=== PATIENT | male | born 1960 | race Hispanic/Latino ===

== ENCOUNTER → 2024-09-09 | Outpatient (CLI) | payer OTHER | END | disposition home or self-care (01) | LOC: RAH 14:09 | PROVIDERS: ATTEND Internal Medicine Cardiovascular Disease | DX: I42.9 Cardiomyopathy, unspecified (principal) | CPT/HCPCS: 93306 ==

== ENCOUNTER 2024-09-28 07:50 | Observation (INO) | payer OTHER ==
[2024-09-23 09:40] LABS: BASOPHILS # (AUTO) 0.03 K/uL (0.00-0.20); BASOPHILS % (AUTO) 0.4 % (0.0-5.0); EOSINOPHILS # (AUTO) 0.09 K/uL (0.00-0.70); EOSINOPHILS % (AUTO) 1.1 % (0.0-8.0); HEMATOCRIT 39.8 % (42-54); IMMATURE GRANULOCYTE ABSOLUTE 0.02 K/uL (0-1); LYMPHOCYTES # (AUTO) 1.8 K/uL (1.0-4.8); LYMPHOCYTES % (AUTO) 21.9 % (21.0-51.0); MEAN CORPUSCULAR HEMOGLOBIN 30.2 pg (27.0-33.0); MEAN CORPUSCULAR HGB CONC 32.7 g/dL (32.0-36.0); MEAN CORPUSCULAR VOLUME 92.6 fL (79-99); MONOCYTES % (AUTO) 12.2 % (3.0-13.0); NEUTROPHILS # (AUTO) 5.3 K/uL (1.8-7.7); NEUTROPHILS % (AUTO) 64.2 % (40.0-77.0); PLATELET COUNT (AUTO) 285 K/uL (130-400); WHITE BLOOD COUNT (AUTO) 8.3 K/uL (4.8-10.8)
[2024-09-23 09:45] LABS: CREATININE 0.7 mg/dL (0.5-1.3); POTASSIUM 4.6 mmol/L (3.5-5.1)
[2024-09-23 09:54] VITALS: BP 154/72; PULSE 64; RESP 18; TEMP 98.1
[2024-09-23 10:02] LABS: APPEARANCE,URINE CLEAR (CLEAR); BILIRUBIN,URINE NEGATIVE (NEGATIVE); COLOR,URINE LIGHT-YELLOW (YELLOW); GLUCOSE, URINE (UA) NEGATIVE (NEGATIVE); KETONES,URINE NEGATIVE (NEGATIVE); LEUKOCYTE ESTERASE ,URINE NEGATIVE Leu/uL (NEGATIVE); NITRATE,URINE NEGATIVE (NEGATIVE); OCCULT BLOOD,URINE NEGATIVE (NEGATIVE); PH,URINE 5.5 (5.0-8.0); PROTEIN,URINE NEGATIVE (NEGATIVE); UROBILINOGEN,URINE 0.2 mg/dL (0.2-1.0)
[2024-09-23 10:09] LABS: INR 1.02 (0.85-1.15)
[2024-09-23 10:13] LABS: ADD UA MICROSCOPIC NO
[~2024-09-28] VITALS: Ht 167.6 cm; Wt 89.5 kg
[2024-09-28] VITALS (26 sets, daily range): BP systolic 96–156; BP diastolic 44–97; PULSE 61–93; RESP 15–20; TEMP 97.1–98.7; O2SAT 96–98
[~2024-09-28 07:50] MED LIST: CARV25TA PO; LOSA100T59 PO; METF-446 PO; ROSU5TAB51 PO
[2024-09-28] MEDS: ceFAZolin SODIUM 2 GM VIAL ONE (08:26)
[2024-09-28] MEDS: 0.9%NACL 1000ML 1,000 ML IV ONE (08:26)
[2024-09-28] MEDS ORDERED: MIDAZOLAM HCL 1 MG/ML 2ML VIAL ONE (10:38)
[2024-09-28] MEDS ORDERED: ondanSETRON 4MG INJ ONE (10:40)
[2024-09-28] MEDS ORDERED: LIDOCAINE PF 100MG/5ML (2%) SYRINGE 5ML ONE (10:40)
[2024-09-28] MEDS ORDERED: proPOFol 10 MG/ML 20ML VIAL IV ONE ×2 (10:40→12:55)
[2024-09-28] MEDS ORDERED: rocuRONium bROMide 10MG/1ML 5ML VL ONE ×2 (10:40→11:24)
[2024-09-28] MEDS ORDERED: dexaMETHasone SOD PHOSPHATE 10MG/ML 1ML VIAL ONE (10:40)
[2024-09-28] MEDS ORDERED: FENTanyl CITRate PF 50 MCG/1 ML 2ML VIAL ONE (10:41)
[2024-09-28] MEDS ORDERED: ROPivacaine 0.5% 5MG/ML 30ML ONE (10:52)
[2024-09-28] MEDS ORDERED: ePHEDrine SULFate 50 MG/ML AMPULE ONE (10:58)
[2024-09-28] MEDS ORDERED: TRANEXAMIC ACID 1000MG/10ML ONE (11:27)
[2024-09-28] MEDS: INSULIN humuLIN R 100 UNIT/ML 3ML SQ SCH (11:30)
[2024-09-28] MEDS ORDERED: PoTASSium chloRIDE 20MEQ/100ML 100 ML IV PRN (11:30)
[2024-09-28] MEDS ORDERED: PoTASSium chl 10% ELIXIR 20MEQ 20 MEQ/15 ML UDCUP PO PRN (11:30)
[2024-09-28] MEDS ORDERED: ondanSETRON 4MG INJ IVP PRN (11:30)
[2024-09-28] MEDS ORDERED: CALCIUM CARB 500MG PO PRN (11:30)
[2024-09-28] MEDS ORDERED: FERROUS FUMARATE 324 MG TABLET PO PRN (11:30)
[2024-09-28] MEDS ORDERED: DiphenhydrAMINE HCL 50 MG/ML VIAL IVP PRN (11:30)
[2024-09-28] MEDS ORDERED: CYCLOBENZAPRINE HCL 10 MG TABLET PO PRN (11:30)
[2024-09-28] MEDS ORDERED: PoTASSium chloRIDE 20MEQ ER 20 MEQ ERTAB PO PRN (11:30)
[2024-09-28] MEDS ORDERED: NEOSTIGMINE METHYLSULFATE 1MG/ML IV ONE (12:42)
[2024-09-28] MEDS ORDERED: GLYCOPYRROLATE 0.2 MG/ML 5 ML VIAL ONE (12:42)
[2024-09-28] MEDS: SUGAMMADEX SODIUM 200 MG/2 ML VIAL IV ONE (12:44)
--- NOTE | 2024-09-28 13:02 | OP ---
Operative Note: DATE OF PROCEDURE: 09/28/24 SURGEON: ARUNA IBRAHIM MD BRUSHER TENDER: Kristyn Donnelly ANESTHESIA: General and fascia iliaca block ANESTHESIOLOGIST/SELVAGE MACHINE OPERATOR: Efren Melton CRNA PREOPERATIVE DIAGNOSIS: Right hip osteoarthritis POSTOPERATIVE DIAGNOSIS: Right hip osteoarthritis PROCEDURE: Right total hip arthroplasty ESTIMATED BLOOD LOSS: 200 cc INDICATIONS: 64-year-old male with right hip osteoarthritis failing conservative management. After discussion of the risks, benefits, and alternatives, the patient voluntarily agreed to undergo the aforementioned procedure. DESCRIPTION OF PROCEDURE: Patient was properly identified in the preoperative holding area. Surgical site marking was verified and surgery consent reviewed. The patient was then taken to the operating room and placed in supine position on the OR table. After induction of general anesthesia, preoperative antibiotics were given. The patient was then transitioned in the lateral decubitus position with the right side up. All bony prominences were well-padded. Right lower extremity was then prepped and draped in the usual sterile fashion. Surgical time out was done verifying correct surgery, side, site, and location to be performed. We then began the procedure by making approximately 15 cm long incision centered over the greater trochanter. Here we came sharply through skin down to the fascia. Hemostasis was then achieved using Bovie electrocautery. We then incised fascia in line with the skin incision and finger split the tensor muscle proximally. We then placed our Charnley retractor. At this point we identified the vastus ridge and began elevating the full-thickness soft tissue flap off of the vastus ridge, splitting the vastus lateralis and gluteus muscles as necessary. We then proceeded to externally rotate the femur while making this flap. We resected part of the anterior capsule. The femoral head and neck was then delivered into view. We then dislocated the hip and performed a femoral neck osteotomy approximately half fingerbreadth proximal lesser trochanter. We then placed our retractors around the superior and anterior portion of the acetabulum and began to remove the labrum circumferentially. We then began reaming the acetabulum where we reamed up to a size 55 ensuring appropriate anteversion and abduction. We then proceeded to trial with the size 56 liliam tabular component and this appeared to sit well. We opened our size 56 acetabular component and after irrigating out the wound malleted this into place. It appeared to have good press-fit however we elected to place 6.5 screws x2. We drilled and filled the screws in standard fashion in the posterior superior portion of the cup. We then placed the manhole cover on the center of the cup. The wound was thoroughly irrigated out further and we placed the acetabular liner and impacted this in place in standard fashion. We then proceeded to reposition our retractors to elevate the proximal femur out of the wound. We then used the box chisel and canal finder to began preparing the femoral side and sequentially broached up to the aforementioned size stem. Once we felt we had good fit, fill, and control of the femur with the stem in place we then used our trial head component and reduce the hip. However we noted this to be a mildly lax on soft tissue tensioning with the appropriate limb length. We therefore elected to dislocate the hip and trialed once more using a high offset neck. Upon reduction, we had appropriate soft tissue te nsioning, limb length and stable range of motion. We therefore dislocated the hip once more removed our trial components thoroughly irrigated the out the wound and placed our final components in standard fashion. The hip was then reduced with the final components in place. It was found to be stable through range of motion with appropriate soft tissue tensioning and appropriate limb length. At this point we placed a bump under the knee and the foot on the male with a stack of towels to allow for internal rotation. We repaired the abductors back to the greater trochanter using #5 Ethibond. We then repaired the rent in the vastus lateralis and gluteus muscles using #1 Vicryl in a running fashion. We removed our Charnley retractor and began to repair the IT band using #1 Vicryl in interrupted [id number] fashion. At this point we began to close her subcutaneous tissue using 2-0 Vicryl. Running 3-0 Monocryl in subcuticular fashion with Dermabond placed over this for the skin. Island barrier dressing was then applied. Patient was returned to supine position with abduction pillow placed, awakened from anesthesia, and taken to the recovery room in stable condition. ARUNA IBRAHIM MD Sep 28, 2024 13:02
--- NOTE | 2024-09-28 13:43 | HMCIMG ---
HIP UNILAT 4VW RIGHT REASON: RT total hip arthroplasty. COMPARISON: None TECHNIQUE: Fluoroscopic images of right hip were obtained. FINDINGS: Please see procedure report by referring physician. IMPRESSION: Intraoperative films.
[2024-09-28] MEDS: MEPERIDINE-PF 25 MG/ML SYG ONE ×2 (13:44→13:54)
[2024-09-28] MEDS: GABApentin 100 MG CAPSULE PO SCH (14:00)
--- NOTE | 2024-09-28 14:22 | HMCIMG ---
HIP BILAT 2VW HISTORY: Status post surgery COMPARISON: None TECHNIQUE: 5 images of bilateral hips were obtained. FINDINGS: Total right hip arthroplasty changes are seen. Alignment appears be grossly adequate. There is no acute displaced fracture or dislocation. Degenerative changes are seen. IMPRESSION: 1. Findings as described above.
--- NOTE | 2024-09-28 14:40 | NUR ---
NOTE PATIENT ARRIVED FROM RECOVERY. POST OP VITALS IN PROGRESS SEE EMAR. DRESSING TO RIGHT HIP CDI, PATIENT RESTING COMFORTABLY IN BED. DENIES PAIN, FAMILY AT BEDSIDE. CB IN REACH.
[2024-09-28] MEDS: ceFAZolin SODIUM 2 GM VIAL IVP SCH (15:43)
[2024-09-28] MEDS: 0.9%NACL 1000ML 1,000 ML IV SCH (15:44)
[2024-09-28] MEDS: ketOROlac 15MG/ML VIAL (15MG/ML) IV SCH (15:45)
--- NOTE | 2024-09-28 16:55 | NUR ---
PT education completed for pain mgt, position, fall precautions, DC planning and plan of care. Pt given ice pack and fall alarm and call button in place. Pt does not have SCDs nursing aware.
--- NOTE | 2024-09-28 17:03 | NUR ---
ORTHO COORDINATOR: TEACHING REGARDING DVT AND PNEUMONIA PREVENTION, PAIN EXPECTATIONS AND PAIN MANAGEMENT REVIEWED. PATIENT IN BED. B SCD SLEEVES APPLIED AND FUNCTIONING. INCENTIVE SPIROMETER AT BEDSIDE. PATIENT RETURN DEMONSTRATED PROPER USE OF INCENTIVE SPIROMETER AND FOOT FLEXION AND EXTENSION EXERCISES. PAIN SCALE REVIEWED. ENCOURAGED PATIENT TO REQUEST MEDICATION ACCORDING TO LEVEL OF PAIN. MEDICATIONS ARE AVAILABLE FOR PAIN FROM 1-10 AND BREAKTHROUGH PAIN. ENCOURAGE PATIENT TO PREMEDICATE PRIOR TO PHYSICAL THERAPY AND CONTINUE ONCE IN REHAB AND AT HOME. PATIENT WILL NEED WALKER AND 3-1 COMMODE. PATIENT HAS NO ADDITIONAL QUESTIONS OR CONCERNS AT THIS TIME.
[2024-09-28] MEDS: metFORmin HCL 500 MG TABLET PO SCH (17:44)
[2024-09-28] MEDS: HYDROcodone/APAP 5/325 1 TAB TABLET PO PRN (17:48)
[2024-09-28] MEDS: doCUSate SODIUM 100 MG CAP PO SCH (20:55)
[2024-09-28] MEDS: atorVAStatin 10 MG TABLET PO SCH (20:55)
[2024-09-28] MEDS: carVEDIlol 25 MG TABLET PO SCH (20:56)
[2024-09-29] VITALS (7 sets, daily range): BP systolic 109–135; BP diastolic 52–70; PULSE 68–74; RESP 16–19; TEMP 97.4–98.4; O2SAT 95–98
[2024-09-29 05:37] LABS: HEMATOCRIT 30.7 % (42-54); MEAN CORPUSCULAR HGB CONC 33.6 g/dL (32.0-36.0); MEAN CORPUSCULAR VOLUME 92.5 fL (79-99); RED BLOOD CELL COUNT(AUTO) 3.32 MIL/uL (4.50-6.20); RED CELL DISTRIBUTION WIDTH 12.9 % (11.0-15.5); WHITE BLOOD COUNT (AUTO) 13.1 K/uL (4.8-10.8)
[2024-09-29 05:57] LABS: CREATININE 0.8 mg/dL (0.5-1.3); POTASSIUM 3.9 mmol/L (3.5-5.1)
--- NOTE | 2024-09-29 08:07 | PN ---
Ortho postop day one. This morning patient is awake alert and oriented. He is in no acute distress reporting adequate pain control. Vital signs are stable. He is afebrile. Laboratory results reviewed. Noted to have a drop in hemoglobin and hematocrit as expected after total hip arthroplasty. Patient is asymptomatic. We will continue to monitor and address per protocol as necessary. Voiding on his own without difficulty. Performing incentive spirometry as instructed with adequate returned demonstration. Operative findings discussed with the patient. Dressing is intact. Distal neurovascular exam intact. Gastrocnemius a soft nontender. Bilateral SCD stockings are currently on and discussed that I would like for him to spend majority of the day out of bed. Patient ambulated yesterday with physical therapy about 10 ft and is pending further physical therapy this morning. The patient is anticipating being considered for a skilled nurse facility for postoperative PT. We will address to case management is appropriate. Assessment: Status post right total hip arthroplasty. Asymptomatic acute postoperative blood loss anemia. Plan: Continue with Dr. Mondragon's total hip arthroplasty protocol and discharge planning. Asymptomatic acute postoperative blood loss anemia addressed with the protocol Vitals/Labs Vital Signs Date Time Temp Pulse Resp B/P (MAP) Pulse Ox O2 Delivery O2 Flow Rate FiO2 09/29/24 03:34 98.2 68 19 109/61 100 Room Air 09/28/24 19:00 0 21 Laboratory Tests 09/29/24 05:06 Medications Current Medications Cefazolin Sodium 2 gm STK-MED ONCE .ROUTE Last administered on 09/28/24at 11:00; Start 09/28/24 at 07:26; Stop 09/28/24 at 07:26; Status DC Sodium Chloride 1,000 ml @ As Directed STK-MED ONCE IV Last administered on 09/28/24at 08:26; Start 09/28/24 at 07:26; Stop 09/28/24 at 07:26; Status DC Midazolam HCl 2 mg STK-MED ONCE .ROUTE; Start 09/28/24 at 10:38; Stop 09/28/24 at 10:38; Status DC Lidocaine HCl 100 mg STK-MED ONCE .ROUTE; Start 09/28/24 at 10:40; Stop 09/28/24 at 10:40; Status DC Ondansetron HCl 4 mg STK-MED ONCE .ROUTE; Start 09/28/24 at 10:40; Stop 09/28/24 at 10:40; Status DC Dexamethasone Sodium Phosphate 10 mg STK-MED ONCE .ROUTE; Start 09/28/24 at 10:40; Stop 09/28/24 at 10:40; Status DC Propofol 200 mg STK-MED ONCE IV; Start 09/28/24 at 10:40; Stop 09/28/24 at 10:40; Status DC Rocuronium Clinton 50 mg STK-MED ONCE .ROUTE; Start 09/28/24 at 10:40; Stop 09/28/24 at 10:40; Status DC Fentanyl Citrate 100 mcg STK-MED ONCE .ROUTE; Start 09/28/24 at 10:41; Stop 09/28/24 at 10:41; Status DC Ropivacaine 150 mg STK-MED ONCE .ROUTE; Start 09/28/24 at 10:52; Stop 09/28/24 at 10:52; Status DC Ephedrine Sulfate 50 mg STK-MED ONCE .ROUTE; Start 09/28/24 at 10:58; Stop 09/28/24 at 10:58; Status DC Sodium Chloride 1,000 ml @ 100 mls/hr Q10H IV Last administered on 09/29/24at 02:23; Start 09/28/24 at 11:30; Stop 09/29/24 at 11:29 Polyethylene Glycol 17 gm DAILY PO; Start 09/29/24 at 09:00; Stop 10/29/24 at 08:59 Bisacodyl 10 mg DAILY PRN RC; Start 10/01/24 at 11:30; Stop 10/31/24 at 11:29 Ketorolac Tromethamine 15 mg Q6H PRN IV; Start 09/29/24 at 11:30; Stop 10/03/24 at 11:29 Ferrous Fumarate 324 mg DAILY PRN PO; Start 09/28/24 at 11:30; Stop 10/28/24 at 11:29 Calcium Carbonate 500 mg Q12H PRN PO; Start 09/28/24 at 11:30; Stop 10/28/24 at 11:29 Diphenhydramine HCl 25 mg Q6H PRN IVP; Start 09/28/24 at 11:30; Stop 10/28/24 at 11:29 Insulin Human Regular INSULIN SLIDING SCAL... ACHS SQ Last administered on 09/28/24at 21:14; Start 09/28/24 at 11:30; Stop 10/28/24 at 11:29 Ondansetron HCl 4 mg Q6H PRN IVP; Start 09/28/24 at 11:30; Stop 10/28/24 at 11:29 Cefazolin Sodium 2 gm Q8H IVP Last administered on 09/29/24at 00:12; Start 09/28/24 at 16:30; Stop 09/29/24 at 00:31; Status DC Gabapentin 100 mg TID PO Last administered on 09/28/24at 20:55; Start 09/28/24 at 14:00; Stop 10/28/24 at 13:59 Cyclobenzaprine HCl 5 mg Q8H PRN PO; Start 09/28/24 at 11:30; Stop 10/28/24 at 11:29 Docusate Sodium 100 mg BID PO Last administered on 09/28/24at 20:55; Start 09/28/24 at 21:00; Stop 10/28/24 at 20:59 Ketorolac Tromethamine 15 mg Q8H IV Last administered on 09/29/24at 03:19; Start 09/28/24 at 11:30; Stop 09/29/24 at 03:31 Potassium Chloride 100 ml @ 100 mls/hr AD PRN IV; Start 09/28/24 at 11:30; Stop 10/28/24 at 11:29 Potassium Chloride 20 meq AD PRN PO; Start 09/28/24 at 11:30; Stop 10/28/24 at 11:29 Potassium Chloride 20 meq AD PRN PO; Start 09/28/24 at 11:30; Stop 10/28/24 at 11:29 Tramadol HCl 50 mg Q6H PRN PO; Start 09/28/24 at 11:30; Stop 10/03/24 at 11:29 Acetaminophen/ Hydrocodone Bitart Q4H PRN PO Last administered on 09/29/24at 06:16; Start 09/28/24 at 11:30; Stop 10/03/24 at 11:29 Carvedilol 25 mg BID PO Last administered on 09/28/24at 20:56; Start 09/28/24 at 21:00; Stop 10/28/24 at 20:59 Losartan Potassium 100 mg DAILY PO; Start 09/29/24 at 09:00; Stop 10/29/24 at 08:59 Metformin HCl 1,000 mg BIDMEALS PO Last administered on 09/28/24at 17:44; Start 09/28/24 at 17:00; Stop 10/28/24 at 16:59 Atorvastatin Calcium 10 mg HS PO Last administered on 09/28/24at 20:55; Start 09/28/24 at 21:00; Stop 10/28/24 at 20:59 Rocuronium Clinton 50 mg STK-MED ONCE .ROUTE; Start 09/28/24 at 11:24; Stop 09/28/24 at 11:24; Status DC Tranexamic Acid 1,000 mg STK-MED ONCE .ROUTE; Start 09/28/24 at 11:27; Stop 09/28/24 at 11:28; Status DC Glycopyrrolate 1 mg STK-MED ONCE .ROUTE; Start 09/28/24 at 12:42; Stop 09/28/24 at 12:43; Status DC Neostigmine Methylsulfate 10 mg STK-MED ONCE IV; Start 09/28/24 at 12:42; Stop 09/28/24 at 12:43; Status DC Propofol 200 mg STK-MED ONCE IV; Start 09/28/24 at 12:55; Stop 09/28/24 at 12:56; Status DC Meperidine HCl 25 mg STK-MED ONCE .ROUTE Last administered on 09/28/24at 13:44; Start 09/28/24 at 13:41; Stop 09/28/24 at 13:41; Status DC Meperidine HCl 25 mg STK-MED ONCE .ROUTE Last administered on 09/28/24at 13:54; Start 09/28/24 at 13:50; Stop 09/28/24 at 13:50; Status DC SUMIT BURT NP Sep 29, 2024 08:07
[2024-09-29] MEDS: LoSARTan 100 MG TABLET PO SCH (08:27)
[2024-09-29] MEDS: traMADol HCL 50 MG TABLET PO PRN (08:28)
[2024-09-29] MEDS: polyETHYLene GLYCol 3350 17 GM POWD.PACK PO SCH (08:32)
--- NOTE | 2024-09-29 13:18 | NUR ---
[facility] DC ART APPRAISER MET WITH PT THIS MORNING. PT IS INDEPENDENT PRIOR TO ADMISSION, LIVES AT HOME WITH . DENIES ANY EQUIPMENT/SERVICES. SPOUSE AND DAUGHTER ABLE TO ASSIST WITH TRANSPORTATION AND NEEDS NECESSARY. PT REQUESTING SHORT TERM REHAB AT [facility] AFTER HOSPITALIZATION, CONSENT SIGNED DANIEL. CM DC ART APPRAISER SENT ORDER, CLINICALS, PT, PASRR TO [facility] VIA SECURE FAX AND EMAIL, CONFIRMATION RECEIVED. CM SPOKE TO [facility], CAME TO EVALUATE PT, PENDING APPROVAL, REP AWARE PT WILL NEED FACILITY VAN FOR TRANSFER ONCE PT READY TO DC. PRIMARY NURSE ROMAIN MADE AWARE. DR IBRAHIM UPDATED. IVÁN TO CONTINUE TO FOLLOW UP. Addendum: 09/29/24 at 1322 by LEYDI VELASCO LVN Amended: Links added.
--- NOTE | 2024-09-29 16:45 | NUR ---
ORTHO COORDINATOR: REINFORCED TEACHING REGARDING DVT AND PNEUMONIA PREVENTION, CONTINUED PAIN MANAGEMENT. PATIENT IN BED. SEVERAL FAMILY MEMBERS AT BEDSIDE. PATIENT HAS ICE PACK TO R HIP. REPORTS PHYSICAL THERAPY GOING WELL. PATIENT ASKED IF REHAB APPROVED, STATED OF 1399 NO ADDITIONAL INFORMATION AVAILABLE. PATIENT REPORTS PASSING GAS. ENCOURAGED PATIENT TO CONTINUE PREMEDICATING PRIOR TO PHYSICAL THERAPY AT REHAB AND ONCE DISCHARGED TO HOME TO MEDICATE PRIOR TO PERIODS OF EXTENDED OR HIGH ACTIVITY. PATIENT VERBALIZED UNDERSTANDING. NO ADDITIONAL QUESTIONS OR CONCERNS AT THIS TIME.
[2024-09-30 03:04] VITALS: BP 143/78; PULSE 76; RESP 18; TEMP 98.8
[2024-09-30 08:00] VITALS: BP 139/80; PULSE 77; RESP 18; TEMP 97.8; O2SAT 96
--- NOTE | 2024-09-30 10:30 | NUR ---
IVÁN NOTE: SHREYA GILMORE PENDING APPROVAL CM RECEIVED CALL FROM DOMINICK Rdz/JAMIE, CURRENTLY WORKING ON AUTH FOR SHREYA OF [place]. PENDING APPROVAL CM SPOKE TO ANTONIO Rdz/SHREYA GILMORE, MADE AWARE OF ABOVE. AWARE PT WILL NEED FACILITY VAN FOR TRANSFER ONCE PT READY TO DC. PRIMARY NURSE ROMAIN MADE AWARE. CM TO CONTINUE TO FOLLOW UP. Addendum: 09/30/24 at 1145 by LEYDI VELASCO LVN CM Amended: Links added.
[2024-09-30] MEDS: ketOROlac 15MG/ML VIAL (15MG/ML) IV PRN (10:45)
[2024-09-30 12:00] VITALS: BP 126/59; PULSE 73; RESP 18; TEMP 98.3
--- NOTE | 2024-09-30 12:18 | NUR ---
IVÁN NOTE: SHREYA GILMORE APPROVAL CM SPOKE TO ANTONIO W/SHREYA GILMORE, PT HAS APPROVAL, AWARE WILL NEED FACILITY VAN FOR TRANSFER. PRIMARY NURSE ROMAIN MADE AWARE. DR IBRAHIM UPDATED. CM TO CONTINUE TO FOLLOW UP. Addendum: 09/30/24 at 1219 by LEYDI VELASCO LVN CM Amended: Links added.
[2024-09-30] MEDS ORDERED: CYCL-309 PO (14:38)
[2024-09-30] MEDS ORDERED: GABA100C PO (14:38)
[2024-09-30] MEDS ORDERED: HYDR-4060 PO (14:38)
[2024-09-30] MEDS ORDERED: DOCU-116 PO (14:38)
[2024-09-30] MEDS ORDERED: ASPI-1443 PO (14:38)
--- NOTE | 2024-09-30 14:40 | NUR ---
ORTHO COORDINATOR: REINFORCED TEACHING. PATIENT DRESSED IN STREET CLOTHES, FAMILY AT BEDSIDE. IV REMOVED. ENCOURAGED PATIENT TO CONTINUE WITH PREMEDICATION PRIOR TO PHYSICAL THERAPY AND CONTINUE USE OF INCENTIVE SPIROMETER. PATIENT VERBALIZED UNDERSTANDING. NO ADDITIONAL QUESTIONS OR CONCERNS AT THIS TIME.
--- NOTE | 2024-09-30 14:41 | DS ---
Discharge Summary Hospital Course Summary: The patient was admitted to the hospital postoperatively on 09/28/2024 after undergoing right total hip arthroplasty. They did well with routine postoperative pain control. They worked well with physical therapy. He developed acute blood loss anemia but remained asymptomatic. The hospital course was otherwise uncomplicated. They were subsequently able to be discharged on postoperative day 2 once discharge arrangements were made with [facility]. Cottage Parent(s): none Procedure(s): Right total hip arthroplasty, 09/28/2024 Assessment/Plan: ASSESSMENT: Postop day two status post right total hip arthroplasty doing well Acute postoperative blood loss anemia, asymptomatic PLAN: See discharge instructions Discharge Instructions: Begin working with physical therapy. Remembered do not flex the hip more than 90 and do not cross midline at the knees or ankles for the 1st six weeks. If you are side sleeper place a pillow between the knees and ankles to prevent the legs from crossing. Dressing may be removed 10/01/2024 and left open to air. Showers ok allowing soap and water to run over the wound. Pat dry. Do not submerge wound in tub/pool. Do not apply ointments. Do not apply Betadine. Do not apply peroxide. Ice packs to decrease pain/swelling. Prescriptions have been sent to the pharmacy: *Frankewing 5/325mg 1-2 tab every 6 hours as needed for severe pain. (please call for refills) Cyclobenzaprine 5mg 1 tab every 8 hours as needed for muscle spasm pain. Gabapentin 100mg 1 tab every 8 hours (may discontinue if drowsy). Colace 100mg 1 tab orally twice a day as needed for constipation. Aspirin 81 mg twice a day for 30 days to prevent blood clots. Call for a follow-up appointment in 2-3 weeks at [facility]. Home Medications: Active Scripts Hydrocodone/Acetaminophen (Hydrocodon-Acetaminophen 5-325) 5 Mg-325 Mg Tablet, 1-2 TAB PO Q6HPRN PRN for MODERATE/SEVERE PAIN LEVEL, #56 TAB 0 Refills Prov:ARUNA IBRAHIM MD 09/30/24 Reported Medications Rosuvastatin Calcium (Rosuvastatin Calcium) 5 Mg Tablet, 5 MG PO HS, TAB 09/23/24 Metformin HCl (Metformin HCl) 1,000 Mg Tablet, 1 TAB PO BID for 30 Days, #60 TAB 0 Refills 09/23/24 Losartan Potassium (Losartan Potassium) 100 Mg Tablet, 1 TAB PO DAILY for 30 Days, #30 TAB 0 Refills 09/23/24 Carvedilol (Carvedilol) 25 Mg Tablet, 1 TAB PO BID for 30 Days, #60 TAB 0 Refills 09/23/24 ARUNA IBRAHIM MD Sep 30, 2024 14:41
--- NOTE | 2024-09-30 17:30 | NUR ---
PATIENT PICKED UP BY FACILITY PATIENT PICKED UP FROM ROOM 404 TO BE TRANSPORTED TO [facility] VIA [facility] STAFF. PAPERWORK GIVEN TO STAFF MEMBER.
--- NOTE | 2024-09-30 17:30 | NUR ---
DISCHARGE TO [facility] PRINTED DISCHARGE INSTRUCTIONS AND WRITTEN PRESCRIPTION GIVEN TO PATIENT/FACILITY, FAXED OVER PRESCRIPTIONS TO [facility]. GAVE REPORT TO KELVIN WOLFE AT [facility]. EDUCATED PATIENT AND FAMILY REGARDING POST-OPERATIVE CARE, SIGNS AND SYMPTOMS TO OBSERVE AND REPORT, MEDICATIONS, FOLLOW UP VISITS, DIET AND ACTIVITY. ANSWERED PT QUESTIONS, PATIENT AND FAMILY UNDERSTOOD.
[2024-10-01] MEDS ORDERED: BisaCODYL 10 MG SUPP.RECT RC PRN (11:30)
== END 2024-09-30 17:30 ==
LOC: DAH 07:50 → DAHIP 07:51 → DAH 07:51 → 4AH 14:40
PROVIDERS: ADMIT Student in an Organized Health Care Education/Training Program; ATTEND Student in an Organized Health Care Education/Training Program
DX: M16.11 Unilateral primary osteoarthritis, right hip (principal); G89.18 Other acute postprocedural pain; D62 Acute posthemorrhagic anemia; I10 Essential (primary) hypertension; E11.9 Type 2 diabetes mellitus without complications; E78.5 Hyperlipidemia, unspecified; I25.2 Old myocardial infarction; Z79.899 Other long term (current) drug therapy; Z87.891 Personal history of nicotine dependence
CPT/HCPCS: 82040; 80048 ×2; 85025; 85610; 85730; 87086; 84134; 86140; 81003; 36415 ×2; 87641; 64450; 73503; 27130; 96374; 96376 ×4; 96375; 82948 ×10; 73521; 97161; 97116 ×5; 97530 ×7; 85027; J1815 ×2; G0378 ×50; A4600; A4663; C1776; J3010; J3490 ×5; J1100; J7030; J2003; J2250; J2704 ×2; J2405; J2710; J2175 ×2; J2795; J1885 ×4; J0690 ×3; A6223; A4649 ×2; A4930; A6255; A4215; A4223; A4222; A4221